=== PATIENT | female | born 1950 | race Caucasian/White ===

== ENCOUNTER 2016-09-23 17:34 | Inpatient (IN) | payer BC ==
[~2016-09-23] VITALS: Ht 177.8 cm; Wt 62.0 kg
[~2016-09-23 17:34] MED LIST: AMITIZA24 MICROGR PO; ASPIR 8181 M1 PO; CORAL CALCIUM1 EACH PO; CYANOCOBALAM1000 MCG PO; FIBER CHOICE1 TABLET PO; FISH OIL 1,0001 EAC7 PO; FISH OIL SOFTG1 EACH PO; FOLIC ACID1 MG PO; HYDROCHLOROTHIA50 MG PO; HYDROXYCHLOROQ200 MG PO; KLOR-CON M2020 MEQ PO; LIPITOR40 MG PO; LIPITOR80 MG PO; LORAZEPAM0.5 MG PO; MELATONIN5 M1 PO; METHOTREXATE2.5 MG PO; MIRALAX, GLYCOL1 PK1 PO; MIRALAX255 GM PO; NEXIUM40 MG PO; NIFEDICAL XL30 MG PO; NITROGLYCERIN0.4 MG SL; PERCOCET 5/31 TABLET PO; STOOL SOFTENER100 M1 PO; SYNTHROID100 MCG PO; SYNTHROID88 MCG PO; TRAMADOL HCL50 MG PO; VITAMIN D32000 UNIT PO; VITAMIN D33000 UNIT PO
[2016-09-23 18:23] LABS: HEMATOCRIT 37.4 % (36.0-46.0); MCH 32.2 PG (29.0-34.0); MCHC 32.6 G/DL (30.0-36.0); MCV 98.7 FL (83-99); MEAN PLAT.VOLUME 11.2 uM^3 (9.5-12.4); PLATELET COUNT 214 K/uL (156-360); RBC DIS.WIDTH-CV 13.9 % (11.8-14.6); RBC DIS.WIDTH-SD 48.2 % (39-53); RED BLOOD COUNT 3.79 M/uL (3.80-5.20); WHITE BLOOD COUNT 4.7 K/uL (4.1-10.2)
[2016-09-23 18:34] LABS: CHLORIDE 107 mEq/L (99-109); POTASSIUM 3.7 mEq/L (3.7-5.4); SODIUM 141 mEq/L (136-147)
[2016-09-23 18:36] LABS: GLUCOSE 135 mg/dL (70-99)
[2016-09-23 18:38] LABS: ANION GAP 7 MEQ/L (2-14); INTER. NORMALIZED RATIO 1.1; PROTHROMBIN TIME 11.4 (9.2-11.2); PTT 28.9 (25-32)
[2016-09-23 18:39] LABS: TOTAL BILIRUBIN 0.4 mg/dL (0.0-1.0)
[2016-09-23 18:40] LABS: ALKALINE PHOSPHATASE 49 IU/L (3-129); GFR ESTIMATE (CALCULATED) > 59 mL/min/
[2016-09-23 18:41] LABS: UREA NITROGEN (BUN) 13 mg/dL (9-23)
[2016-09-23 20:41] LABS: TROP-I INTERPRETATION NEGATIVE; TROPONIN-I < 0.01 ng/mL (0.0-0.30)
[2016-09-23] MEDS ORDERED: NIFEDIPINE ER30 MG PO (22:41)
[2016-09-23] MEDS ORDERED: LEVO-T75 MCG PO (22:43)
[2016-09-23] MEDS ORDERED: VITAMIN D31000 UNIT PO (22:45)
[2016-09-23] MEDS ORDERED: DOCUSATE SODIU100 MG PO (22:45)
[2016-09-23] MEDS ORDERED: VEGETABLE LAXA8.6 MG PO (22:46)
[2016-09-23 23:44] VITALS: BP 136/59
[2016-09-24 04:01] VITALS: BP 127/59
[2016-09-24 05:37] LABS: HEMATOCRIT 33.7 % (36.0-46.0); MCH 32.3 PG (29.0-34.0); MCV 100.9 FL (83-99); MEAN PLAT.VOLUME 11.7 uM^3 (9.5-12.4); PLATELET COUNT 171 K/uL (156-360); RBC DIS.WIDTH-CV 14.4 % (11.8-14.6); RBC DIS.WIDTH-SD 52.8 % (39-53); RED BLOOD COUNT 3.34 M/uL (3.80-5.20); WHITE BLOOD COUNT 4.7 K/uL (4.1-10.2)
[2016-09-24 06:04] LABS: ANION GAP 4 MEQ/L (2-14); CHLORIDE 105 MEQ/L (99-109); GFR ESTIMATE (CALCULATED) > 59 mL/min/; GLUCOSE 109 mg/dL (70-99); SAMPLE HEMOLYSIS CHECK 0; SAMPLE ICTERIC CHECK 0; SAMPLE LIPEMIA CHECK 0; SODIUM 141 MEQ/L (136-147); UREA NITROGEN (BUN) 11 mg/dL (9-23)
[2016-09-24 07:49] VITALS: BP 133/64
[2016-09-24 11:36] VITALS: BP 116/56
[2016-09-24 17:16] VITALS: BP 125/58
[2016-09-24 19:22] VITALS: BP 121/54
[2016-09-24 23:56] VITALS: BP 117/52
[2016-09-25 04:05] VITALS: BP 100/53
[2016-09-25 04:55] LABS: HEMATOCRIT 30.5 % (36.0-46.0); MCH 32.1 PG (29.0-34.0); MCHC 32.1 G/DL (30.0-36.0); MEAN PLAT.VOLUME 11.4 uM^3 (9.5-12.4); PLATELET COUNT 143 K/uL (156-360); RBC DIS.WIDTH-CV 13.9 % (11.8-14.6); RBC DIS.WIDTH-SD 48.3 % (39-53); RED BLOOD COUNT 3.05 M/uL (3.80-5.20); WHITE BLOOD COUNT 4.9 K/uL (4.1-10.2)
[2016-09-25 05:04] LABS: CHLORIDE 107 mEq/L (99-109); POTASSIUM 3.4 mEq/L (3.7-5.4); SODIUM 141 mEq/L (136-147)
[2016-09-25 05:06] LABS: GLUCOSE 141 mg/dL (70-99)
[2016-09-25 05:07] LABS: ANION GAP 7 MEQ/L (2-14)
[2016-09-25 05:10] LABS: GFR ESTIMATE (CALCULATED) > 59 mL/min/
[2016-09-25 05:11] LABS: UREA NITROGEN (BUN) 6 mg/dL (9-23)
[2016-09-25 08:05] VITALS: BP 113/53
[2016-09-25 12:48] VITALS: BP 119/57
[2016-09-25 16:28] VITALS: BP 123/56
[2016-09-25 19:54] VITALS: BP 111/60
[2016-09-25 23:56] VITALS: BP 106/52
[2016-09-26] VITALS (7 sets, daily range): BP systolic 96–115; BP diastolic 48–62
[2016-09-26 05:20] LABS: HEMATOCRIT 30.1 % (36.0-46.0); MCH 32.8 PG (29.0-34.0); MCHC 32.6 G/DL (30.0-36.0); MCV 100.7 FL (83-99); MEAN PLAT.VOLUME 11.4 uM^3 (9.5-12.4); PLATELET COUNT 135 K/uL (156-360); RBC DIS.WIDTH-CV 14.5 % (11.8-14.6); RBC DIS.WIDTH-SD 53.2 % (39-53); RED BLOOD COUNT 2.99 M/uL (3.80-5.20); WHITE BLOOD COUNT 4.7 K/uL (4.1-10.2)
[2016-09-26 05:45] LABS: ANION GAP 4 MEQ/L (2-14); CHLORIDE 106 MEQ/L (99-109); GFR ESTIMATE (CALCULATED) > 59 mL/min/; GLUCOSE 112 mg/dL (70-99); SAMPLE HEMOLYSIS CHECK 0; SAMPLE ICTERIC CHECK 0; SAMPLE LIPEMIA CHECK 0; SODIUM 139 MEQ/L (136-147); UREA NITROGEN (BUN) 8 mg/dL (9-23)
[2016-09-26 05:55] LABS: POTASSIUM 4.2 MEQ/L (3.7-5.4)
[2016-09-27 05:00] VITALS: BP 107/50
[2016-09-27 05:43] LABS: HEMATOCRIT 28.4 % (36.0-46.0); MCH 32.9 PG (29.0-34.0); MCHC 32.7 G/DL (30.0-36.0); MCV 100.4 FL (83-99); MEAN PLAT.VOLUME 11.2 uM^3 (9.5-12.4); PLATELET COUNT 134 K/uL (156-360); RBC DIS.WIDTH-CV 14.2 % (11.8-14.6); RBC DIS.WIDTH-SD 51.8 % (39-53); RED BLOOD COUNT 2.83 M/uL (3.80-5.20); WHITE BLOOD COUNT 3.5 K/uL (4.1-10.2)
[2016-09-27 08:43] VITALS: BP 115/50
[2016-09-27 16:31] VITALS: BP 108/51
[2016-09-27 19:55] VITALS: BP 117/51
[2016-09-27 23:53] VITALS: BP 101/50
[2016-09-28 03:01] VITALS: BP 111/52
[2016-09-28 08:04] VITALS: BP 110/53
[2016-09-28 12:20] VITALS: BP 116/53
[2016-09-28 16:07] VITALS: BP 110/51
[2016-09-28 19:35] VITALS: BP 108/48
[2016-09-29 00:30] VITALS: BP 108/54
[2016-09-29 08:02] VITALS: BP 107/62
[2016-09-29 12:38] LABS: HEMATOCRIT 34.1 % (36.0-46.0); MCH 32.9 PG (29.0-34.0); MCHC 33.1 G/DL (30.0-36.0); MCV 99.4 FL (83-99); MEAN PLAT.VOLUME 11.3 uM^3 (9.5-12.4); RBC DIS.WIDTH-CV 14.4 % (11.8-14.6); RBC DIS.WIDTH-SD 51.4 % (39-53); WHITE BLOOD COUNT 4.4 K/uL (4.1-10.2)
[2016-09-29 12:39] LABS: PLATELET COUNT 248 K/uL (156-360); RED BLOOD COUNT 3.43 M/uL (3.80-5.20)
[2016-09-29 15:56] VITALS: BP 116/54
[2016-09-29 22:50] VITALS: BP 108/55
[2016-09-30 08:30] VITALS: BP 119/51
[2016-09-30] MEDS ORDERED: ENDOCET 5-3251 EACH PO (14:59)
[2016-09-30] MEDS ORDERED: LOVENOX40 MG/0.4 SC (15:11)
[2016-09-30 16:25] VITALS: BP 101/45
== END 2016-09-30 18:21 | DRG 482 ==
LOC: EME 17:34 → EDOF 21:30 → 3EAST 21:30
PROVIDERS: Emergency Medicine; Hospitalist; Nurse Practitioner Adult Health; Orthopaedic Surgery
PROC: 0QS704Z Reposition Left Upper Femur with Internal Fixation Device, Open Approach (ICD-10-PCS; principal; 2016-09-24)
DX: S72.142A Displaced intertrochanteric fracture of left femur, initial encounter for closed fracture (principal); W19.XXXA Unspecified fall, initial encounter; Y92.511 Restaurant or cafe as the place of occurrence of the external cause; E87.6 Hypokalemia; D69.6 Thrombocytopenia, unspecified; I25.111 Atherosclerotic heart disease of native coronary artery with angina pectoris with documented spasm; K21.9 Gastro-esophageal reflux disease without esophagitis; E78.5 Hyperlipidemia, unspecified; E03.9 Hypothyroidism, unspecified; F41.9 Anxiety disorder, unspecified; G89.29 Other chronic pain; M19.90 Unspecified osteoarthritis, unspecified site; I10 Essential (primary) hypertension; Z79.82 Long term (current) use of aspirin
CPT/HCPCS: 71010; 73502; 73552; 76000; 80048; 80053; 84132; 84484; 85014; 85018; 85027; 85610; 85730; 86850; 86900; 86901; 93005; 97530 GO; 97530 GP; 99281; 99285; C1713; J0690; J1170; J1650; J2405; J2765; J3010; J7120; J8610

== ENCOUNTER 2016-10-19 17:01 | Emergency (ER) | payer BC ==
[~2016-10-19] VITALS: Ht 177.8 cm; Wt 59.1 kg
[~2016-10-19 17:01] MED LIST changes: +DOCUSATE SODIU100 MG PO; +ENDOCET 5-3251 EACH PO; +LEVO-T75 MCG PO; +LOVENOX40 MG/0.4 SC; +NIFEDIPINE ER30 MG PO; +VEGETABLE LAXA8.6 MG PO; +VITAMIN D31000 UNIT PO
[2016-10-19 18:42] LABS: EOSINOPHIL COUNT 0.1 K/uL (0-0.3); HEMATOCRIT 34.3 % (36.0-46.0); IMMATURE GRANULOCYTE (%) 0.2 % (0.0-0.7); IMMATURE GRANULOCYTE COUNT 0.1 K/uL; MCH 32.2 PG (29.0-34.0); MCHC 31.8 G/DL (30.0-36.0); MCV 101.2 FL (83-99); MEAN PLAT.VOLUME 11.2 uM^3 (9.5-12.4); MONOCYTE (%) 7.3 % (3-12); MONOCYTE COUNT 0.4 K/uL (0-0.8); NEUTROPHIL (%) 74.4 % (45-76); NEUTROPHIL COUNT 4.4 K/uL (1.8-6.4); PLATELET COUNT 230 K/uL (156-360); RBC DIS.WIDTH-CV 14.8 % (11.8-14.6); RBC DIS.WIDTH-SD 52.3 % (39-53); RED BLOOD COUNT 3.39 M/uL (3.80-5.20)
[2016-10-19 18:43] LABS: WHITE BLOOD COUNT 5.9 K/uL (4.1-10.2)
[2016-10-19 18:48] LABS: CHLORIDE 102 mEq/L (99-109); SODIUM 141 mEq/L (136-147)
[2016-10-19 18:50] LABS: GLUCOSE 97 mg/dL (70-99)
[2016-10-19 18:51] LABS: ANION GAP 9 MEQ/L (2-14)
[2016-10-19 18:54] LABS: GFR ESTIMATE (CALCULATED) > 59 mL/min/
[2016-10-19 18:55] LABS: UREA NITROGEN (BUN) 14 mg/dL (9-23)
[2016-10-19 19:02] LABS: ERTH.SED.RATE 33 MM/HR (0-30)
[2016-10-19 19:10] LABS: C-REACTIVE PROTEIN 30.6 MG/L (0-10); SAMPLE HEMOLYSIS CHECK 0; SAMPLE ICTERIC CHECK 0; SAMPLE LIPEMIA CHECK 0
[2016-10-19 21:39] VITALS: BP 133/61
== END 2016-10-19 21:41 | disposition home or self-care (01) ==
LOC: EME 17:01
PROVIDERS: Emergency Medicine
DX: M25.462 Effusion, left knee (principal); S72.92XD Unspecified fracture of left femur, subsequent encounter for closed fracture with routine healing; X58.XXXD Exposure to other specified factors, subsequent encounter
CPT/HCPCS: 73502; 73552; 80048; 85025; 85651; 86140; 93971; 99281; 99284; J1885; J2270